=== PATIENT | female | born 1950 | race Caucasian/White ===

== ENCOUNTER 2018-03-04 14:49 | Emergency (ER) | payer MEDICARE ==
[~2018-03-04] VITALS: Ht 167.6 cm; Wt 94.8 kg
[2018-03-04] MEDS ORDERED: METHYLPREDNISOLONE SOD SUCC 125 MG/2ML VIAL IM ONE (15:15)
== END 2018-03-04 17:47 | disposition home or self-care (01) ==
LOC: ER 14:49
DX: L23.5 Allergic contact dermatitis due to other chemical products (principal)
CPT/HCPCS: 99284; J2930

== ENCOUNTER 2018-04-09 16:15 | Inpatient (IN) | payer MEDICARE ==
[2018-04-08] MEDS: KCL 40MEQ/0.9% SOD CHL 1,000 ML IV SCH (08:45)
[~2018-04-09] VITALS: Ht 167.6 cm; Wt 106.3 kg
[2018-04-09] MEDS ORDERED: SODIUM CHLORIDE 0.9% 1000ML 1,000 ML IV STA (16:33)
[2018-04-09] MEDS ORDERED: ONDANSETRON HCL INJ 2 MG/ML VIAL IV STA ×3 (16:33→23:41)
[2018-04-09 17:41] LABS: CLARITY,URINE SL CLOUDY (CLEAR); COLOR,URINE YELLOW (YELLOW); KETONES,URINE NEGATIVE (NEGATIVE); LEUKOCYTE ESTERASE ,URINE 2+ (NEGATIVE); NITRITE,URINE POSITIVE (NEGATIVE); PROTEIN,URINE DIPSTICK 2+ (NEGATIVE); URINE UROBILINOGEN 0.2 mg/dL (0.2 - 1)
[2018-04-09 17:42] LABS: BILIRUBIN,URINE NEGATIVE (NEGATIVE)
[2018-04-09 17:51] LABS: BACTERIA,URINE MANY /HPF; RBC,URINE >50 /HPF (0-5)
[2018-04-09] MEDS ORDERED: ACETAMINOPHEN 1000 MG/100 ML IV STA (18:53)
[2018-04-09 19:28] LABS: BASOPHILS # (AUTO) 0.1 (0.0-0.1); BASOPHILS % 0.3 % (0.0-1.0); HEMATOCRIT 40.5 % (34.2-44.1); HEMOGLOBIN 13.7 g/dL (12.0-16.0); LYMPHOCYTES # (AUTO) 1.8 (1.0-3.2); MEAN CORPUSCULAR HEMOGLOBIN 30.6 pg (28-32); MEAN CORPUSCULAR HGB CONC 33.8 g/dL (31-35); MEAN CORPUSCULAR VOLUME 90.6 fL (81-99); MONOCYTES # (AUTO) 1.8 (0.2-0.8); MONOCYTES % 7.4 % (4.4-11.3); NEUTROPHILS # (AUTO) 21.1 (2.1-6.9); NEUTROPHILS % 84.1 % (38.7-80.0); PLATELET COUNT 221 x10e3/uL (140-360); RED BLOOD COUNT 4.47 x10e6/uL (3.6-5.1); RED CELL DISTRIBUTION WIDTH 13.6 % (11.7-14.4)
[2018-04-09] MEDS ORDERED: PIPER-TAZ 3.375 GM 50 ML IV STA (19:41)
[2018-04-09 19:46] LABS: ALBUMIN 3.6 g/dL (3.5-5.0); ALBUMIN/GLOBULIN RATIO 0.8 (0.8-2.0); ANION GAP 16.4 mmol/L (8-16); CALCIUM 10.3 mg/dL (8.4-10.2); CREATININE, SERUM 1.26 mg/dL (0.57-1.11); POTASSIUM 3.4 mmol/L (3.5-5.1)
[2018-04-09] MEDS ORDERED: DIATRIZOATE MEGL/DIATRIZOA SOD 30 ML BTL PO ONE (19:50)
[2018-04-09 19:55] LABS: INR 1.24; PROTHROMBIN TIME 14.7 seconds (11.9-14.5)
[2018-04-09 19:56] LABS: PARTIAL THROMBOPLASTIN TIME 35.9 seconds (23.8-35.5)
[2018-04-09 20:04] LABS: MAGNESIUM 1.5 MG/DL (1.3-2.1)
[2018-04-09 20:10] LABS: CREATINE KINASE MB 2.9 ng/mL (0-5.0)
[2018-04-09] MEDS ORDERED: SODIUM CHLORIDE 0.9% 1000ML 1,000 ML ONE (20:25)
[2018-04-09] MEDS ORDERED: SODIUM CHLORIDE 0.9% 1000ML 1,000 ML IV ONE ×2 (20:30→23:30)
[2018-04-09] MEDS ORDERED: ALBUTEROL0.63 MG/3 INH (21:05)
[2018-04-09] MEDS ORDERED: AMLODIPINE BESY10 MG PO (21:06)
[2018-04-09] MEDS ORDERED: ATORVASTATIN CA20 MG PO (21:06)
[2018-04-09] MEDS ORDERED: ASPIR 8181 MG PO (21:06)
[2018-04-09] MEDS ORDERED: CYCLOBENZAPRINE10 MG PO (21:07)
[2018-04-09] MEDS ORDERED: ZYRTEC10 M3 PO (21:07)
[2018-04-09] MEDS ORDERED: VITAMIN D250000 UNIT PO (21:08)
[2018-04-09] MEDS ORDERED: FLUTICASONE PRO16 GM (21:09)
[2018-04-09] MEDS ORDERED: LASIX20 MG PO (21:10)
[2018-04-09] MEDS ORDERED: MELOXICAM7.5 MG PO (21:11)
[2018-04-09] MEDS ORDERED: SYNTHROID50 MCG PO (21:11)
[2018-04-09] MEDS ORDERED: COZAAR25 MG PO (21:11)
[2018-04-09] MEDS ORDERED: MONTELUKAST SOD10 MG PO (21:12)
[2018-04-09] MEDS ORDERED: SERTRALINE HCL50 MG PO (21:12)
[2018-04-09] MEDS ORDERED: METOPROLOL SUCC50 MG PO (21:12)
[2018-04-09] MEDS ORDERED: ULTRAM50 MG PO (21:13)
[2018-04-09] MEDS ORDERED: TRAZODONE HCL50 MG PO (21:14)
[2018-04-09 21:50] LABS: LYMPHOCYTES % (MANUAL) 10 % (19-48); METAMYELOCYTES % (MANUAL) 1 % (0-0); MONOCYTES % (MANUAL) 8 % (3.4-9.0); NEUTROPHILS % (MANUAL) 79 % (40-74); PLATELET ESTIMATE ADEQUATE; PLATELET MORPHOLOGY COMMENT NORMAL; RBC MORPHOLOGY COMMENT NORMAL
[2018-04-09] MEDS ORDERED: SODIUM CHLORIDE 0.9% 50ML 50 ML ONE (22:07)
[2018-04-09] MEDS ORDERED: IOPAMIDOL 370 MG/ML 200 ML INFUS..BTL INJ ONE (22:07)
--- NOTE | 2018-04-09 23:25 | Diagnostic Imaging Report ---
ADDENDUM #1 This patient was discussed with the ER physician, Dr. Sarabia. The patient had large volume diarrhea just prior to CT scan with oral contrast all around the vagina, which would account for presence of oral contrast within the vagina, rather than fistula. Signed by: Dr. Indu Szymanski M.D. on 04/09/2018 11:42 PM ORIGINAL REPORT EXAM: CT ABDOMEN AND PELVIS with IV CONTRAST DATE: 04/09/2018 7:38 PM Time stamp on Exam: 2300 hours INDICATION: Fever, diarrhea, vomiting COMPARISON: None TECHNIQUE: The abdomen and pelvis were scanned using a multidetector helical scanner. Coronal and sagittal reformations were obtained. Dose modulation, iterative reconstruction, and/or weight based adjustment of the mA/kV was utilized to reduce the radiation dose to as low as reasonably achievable. Routine protocol performed. IV Contrast: 100 cc Isovue-370 Oral Contrast: Gastrografin FINDINGS: LOWER THORAX: No consolidations LIVER: No masses BILIARY: The gallbladder is unremarkable. No ductal dilation. SPLEEN: No masses PANCREAS: No masses ADRENALS: No nodules KIDNEYS: Heterogeneous perfusion of the bilateral kidneys and bilateral perinephric fat stranding. No hydronephrosis. Mild uroepithelial enhancement. GI TRACT: Possible rectal wall thickening. Possible thickening versus nondistended state of the ascending, transverse and descending colon. Sigmoid colon diverticulosis without evidence of active inflammation. No small bowel dilation. VESSELS: Unremarkable PERITONEUM/RETROPERITONEUM: No free air or fluid LYMPH NODES: No lymphadenopathy REPRODUCTIVE ORGANS: The uterus and ovaries are unremarkable. There is oral contrast in the vagina. BLADDER: Unremarkable SOFT TISSUES: Unremarkable BONES: Heterogeneous appearance to the spine is most likely secondary to degenerative changes and bone demineralization. IMPRESSION: 1. Oral contrast in the vagina suspicious for a rectovaginal fistula. Please correlate with clinical exam. 2. Appearance of the kidneys is nonspecific, but can be seen in pyelonephritis. 3. Colonic wall thickening versus underdistention. Signed by: Dr. Indu Szymanski M.D. on 04/09/2018 11:21 PM
[2018-04-09] MEDS ORDERED: MORPHINE SULFATE 2 MG/ML SYR IV STA (23:41)
[2018-04-09] MEDS ORDERED: METRONIDAZOLE 500MG/NS 100ML 100 ML IV SCH (23:45)
[2018-04-09] MEDS ORDERED: PANTOPRAZOLE 40 MG 10ML VIAL IV STA (23:55)
[2018-04-09] MEDS ORDERED: SODIUM CHLORIDE 0.9% 1000ML 1,000 ML IV SCH (23:55)
[2018-04-10] VITALS (76 sets, daily range): BP systolic 70–122; BP diastolic 34–94
[2018-04-10] MEDS ORDERED: PROMETHAZINE 12.5MG/ NACL 0.9% 12.5 MG/50 ML BAG IV PRN
[2018-04-10] MEDS ORDERED: MORPHINE SULFATE 2 MG/ML SYR IV PRN
[2018-04-10] MEDS ORDERED: ONDANSETRON HCL INJ 2 MG/ML VIAL IV PRN
[2018-04-10] MEDS ORDERED: IBUPROFEN 400 MG TAB PO ONE
[2018-04-10] MEDS ORDERED: ACETAMINOPHEN 1000 MG/100 ML IV PRN (00:15)
[2018-04-10] MEDS ORDERED: DEXTROSE 50% SYRINGE 50 ML IV PRN (00:15)
[2018-04-10] MEDS: METRONIDAZOLE 500MG/NS 100ML 100 ML IV SCH ×5 (00:40→18:00)
[2018-04-10] MEDS: PIPER-TAZ 3.375 GM 50 ML IV SCH ×5 (01:44→23:35)
[2018-04-10] MEDS ORDERED: IBUPROFEN 200 MG TAB PO PRN (02:00)
[2018-04-10 04:45] LABS: BASOPHILS % 0.2 % (0.0-1.0); HEMOGLOBIN 11.6 g/dL (12.0-16.0); LYMPHOCYTES # (AUTO) 0.6 (1.0-3.2); LYMPHOCYTES % 3.2 % (18.0-39.1); MEAN CORPUSCULAR HEMOGLOBIN 30.5 pg (28-32); MEAN CORPUSCULAR HGB CONC 33.1 g/dL (31-35); MEAN CORPUSCULAR VOLUME 92.1 fL (81-99); MONOCYTES # (AUTO) 1.2 (0.2-0.8); MONOCYTES % 6.2 % (4.4-11.3); NEUTROPHILS # (AUTO) 16.5 (2.1-6.9); NEUTROPHILS % 86.4 % (38.7-80.0); PLATELET COUNT 150 x10e3/uL (140-360)
[2018-04-10 05:10] LABS: ALBUMIN 2.6 g/dL (3.5-5.0); ALBUMIN/GLOBULIN RATIO 0.7 (0.8-2.0); ANION GAP 14.5 mmol/L (8-16); CALCIUM 8.5 mg/dL (8.4-10.2); CREATININE, SERUM 1.32 mg/dL (0.57-1.11)
[2018-04-10 05:14] LABS: POTASSIUM 2.5 mmol/L (3.5-5.1)
[2018-04-10 05:22] LABS: CREATINE KINASE MB 2.3 ng/mL (0-5.0)
[2018-04-10] MEDS ORDERED: POTASSIUM CHLORIDE 20 MEQ TAB CR PO STA (05:29)
[2018-04-10 06:44] LABS: BAND NEUTROPHILS % (MANUAL) 11 %; LYMPHOCYTES % (MANUAL) 5 % (19-48); MONOCYTES % (MANUAL) 3 % (3.4-9.0); NEUTROPHILS % (MANUAL) 81 % (40-74)
[2018-04-10 07:01] LABS: HOWELL-JOLLY BODIES FEW; RBC MORPHOLOGY COMMENT NORMAL
[2018-04-10 07:02] LABS: ANISOCYTOSIS SLIGHT; PLATELET ESTIMATE SLIGHTLY DECREASED; PLATELET MORPHOLOGY COMMENT FEW LARGE
[2018-04-10] MEDS: INSULIN REGULAR, HUMAN 100 UNIT/1 ML 3ML VIAL SQ SCH ×4 (07:30→21:00)
[2018-04-10] MEDS ORDERED: SODIUM CHLORIDE 0.9% 500ML 500 ML ONE (09:29)
[2018-04-10] MEDS ORDERED: SODIUM CHLORIDE 0.9% 1000ML 500 ML IV ONE (09:45)
[2018-04-10] MEDS: PANTOPRAZOLE 40 MG 10ML VIAL IV SCH (10:23)
--- NOTE | 2018-04-10 10:53 | History and Physical ---
CHIEF COMPLAINT: Septic shock. HISTORY: Patient is a 67-year-old female, came in hypotensive, dehydrated, and fever. Patient has also had profound diarrhea for the past few days. She is having some abdominal pain. She was in renal failure acutely. The patient with fever, nausea, vomiting, low potassium level. The patient is also dehydrated. The patient is admitted to ICU for a septic shock. PAST MEDICAL HISTORY: Previous CVA with slight right-sided weakness, left carotid endarterectomy, hypertension, diabetes type 2, hypothyroidism, history of hepatitis C, dyslipidemia, obstructive sleep apnea, and diabetic neuropathy. PAST SURGICAL HISTORY: Left carotid endarterectomy. SOCIAL HISTORY: Patient quit smoking many years ago. She drinks alcohol occasionally. ALLERGIES: NO KNOWN ALLERGIES. HOME MEDICATIONS: Not yet available for review. REVIEW OF SYSTEMS: Generalized weakness, diarrhea, and abdominal discomfort. PHYSICAL EXAMINATION VITAL SIGNS: Temperature 101, blood pressure 77/50, pulse rate is 86, and respirations 22. GENERAL: The patient is awake and alert. HEENT: Normocephalic, atraumatic. Sclerae anicteric. NECK: Supple grossly. PULMONARY: Diminished breath sounds. CARDIOVASCULAR: Tachycardia. ABDOMEN: Soft, obese. EXTREMITIES: No cyanosis or edema. NEUROLOGIC: No gross focal deficit at this time. Moving all extremities. LABORATORY: Sodium is 138, potassium 2.5, chloride 108, bicarb 18, BUN 17, creatinine 1.3, and glucose 130. WBC is 19,000, hemoglobin 11.6, hematocrit 35, and platelets are 150. IMAGING: CT abdomen and pelvis had shown colitis. IMPRESSION 1. Septic with shock. 2. Urinary tract infection. 3. Colitis. 4. Acute gastroenteritis. 5. Lactic acidosis. 6. Diarrhea. 7. Dehydration. PLAN: Central line placement. Pressure support. Continue with IV fluid treatment. Flagyl and Zosyn antibiotics. Insulin sliding scale coverage. We will monitor this patient closely in the ICU. We will consult infectious disease for septic with shock. Job#: [id number] CARSON
[2018-04-10 12:38] LABS: ANION GAP 15.6 mmol/L (8-16); CALCIUM 8.7 mg/dL (8.4-10.2); CREATININE, SERUM 1.33 mg/dL (0.57-1.11)
--- NOTE | 2018-04-10 12:43 | Diagnostic Imaging Report ---
EXAMINATION: CHEST XRAY LINE PLACEMENT INDICATION: Status post PICC placement. COMPARISON: Chest radiograph 04/10/18 at 1204 PM. FINDINGS: TUBES and LINES: Slight interval advancement of right sided PICC, which now terminates at the expected location of the upper SVC. LUNGS: Low lung volumes. Mild bibasilar opacities, consistent with atelectasis. There is no evidence of pneumonia or pulmonary edema. PLEURA: No pleural effusion or pneumothorax. HEART AND MEDIASTINUM: The cardiomediastinal silhouette is unremarkable. BONES AND SOFT TISSUES: No acute osseous lesion. Soft tissues are unremarkable. UPPER ABDOMEN: No free air under the diaphragm. IMPRESSION: Right PICC has been slightly advanced and terminates at the upper SVC. No evidence of kinking or pneumothorax. Low lung volumes with patchy bibasilar atelectasis. Signed by: Dr. Destinee Monsalve MD on 04/10/2018 12:40 PM
[2018-04-10 12:44] LABS: CREATINE KINASE MB 2.1 ng/mL (0-5.0)
[2018-04-10 12:50] LABS: POTASSIUM 2.6 mmol/L (3.5-5.1)
[2018-04-10] MEDS: KCL 40MEQ/0.9% SOD CHL 1,000 ML IV SCH ×2 (13:30→20:17)
[2018-04-10] MEDS ORDERED: POTASSIUM CHLORIDE 20MEQ/100ML 200 ML IV ONE (13:45)
[2018-04-10] MEDS ORDERED: MAGNESIUM SULFATE 2GM/50ML 100 ML IV ONE (13:45)
--- NOTE | 2018-04-10 15:08 | Consultation ---
DATE OF CONSULTATION: REASON FOR CONSULTATION: Fever. HISTORY OF PRESENT ILLNESS: This patient has history of CVA, history of obesity, history of hypertension, left carotid endarterectomy, diabetes mellitus type 2, hypothyroidism, hepatitis C, and hyperlipidemia. The patient comes in with fever and chills. She has diarrhea. She has nausea and vomiting. The patient comes into the emergency room. She is currently in ICU with sepsis and septic shock. Her blood cultures are already showing gram-negative rods. LABORATORY DATA: White count was 25.02 on admission, hemoglobin 13, hematocrit 40, platelet of 221. Sodium 139, potassium 2.6, creatinine 1.33. The patient already had a CT of the abdomen and pelvis. There was oral contrast in the vaginal area suspicious for rectovaginal fistula. The colon seems to be thickened. Patient is already on metronidazole and Zosyn. PHYSICAL EXAMINATION GENERAL: She is currently alert and oriented, does not seem to be in acute distress. VITAL SIGNS: Stable. Currently afebrile. HEENT: She does not appear icteric. NECK: Supple. CHEST: Clear bilateral. HEART: S1, S2. No S3, S4, or murmur. ABDOMEN: Soft, obese. No tenderness. No hepatosplenomegaly. EXTREMITIES: No edema. SKIN: No rash. IMPRESSION AND PLAN 1. Sepsis on admission, source is probably colon. Agree with Zosyn. Can discontinue metronidazole. Recheck CBC. Recheck chem panel. IV fluid. Concern about fistula, may need GI evaluation. 2. Diabetes mellitus and hyperlipidemia. We will follow with you. Job#: [id number]
[2018-04-10] MEDS ORDERED: POTASSIUM PHOSPHATE 20 MM in SODIUM CHLORIDE 0.9% 250ML 250 ML IV ONE (19:30)
[2018-04-10 21:42] LABS: OCCULT BLOOD STOOL POSITIVE (NEGATIVE)
[2018-04-11] VITALS (65 sets, daily range): BP systolic 90–140; BP diastolic 64–93
[2018-04-11 04:48] LABS: BASOPHILS # (AUTO) 0.1 (0.0-0.1); BASOPHILS % 0.4 % (0.0-1.0); EOSINOPHILS # (AUTO) 0.1 (0.0-0.4); EOSINOPHILS % 0.3 % (0.0-6.0); HEMATOCRIT 34.4 % (34.2-44.1); HEMOGLOBIN 11.2 g/dL (12.0-16.0); LYMPHOCYTES # (AUTO) 1.6 (1.0-3.2); LYMPHOCYTES % 6.3 % (18.0-39.1); MEAN CORPUSCULAR HEMOGLOBIN 30.4 pg (28-32); MEAN CORPUSCULAR HGB CONC 32.6 g/dL (31-35); MEAN CORPUSCULAR VOLUME 93.2 fL (81-99); MONOCYTES % 7.7 % (4.4-11.3); NEUTROPHILS # (AUTO) 20.9 (2.1-6.9); NEUTROPHILS % 80.6 % (38.7-80.0); PLATELET COUNT 147 x10e3/uL (140-360); RED BLOOD COUNT 3.69 x10e6/uL (3.6-5.1); RED CELL DISTRIBUTION WIDTH 14.6 % (11.7-14.4)
[2018-04-11] MEDS: KCL 40MEQ/0.9% SOD CHL 1,000 ML IV SCH ×2 (04:55→16:09)
[2018-04-11 05:15] LABS: ANION GAP 13.4 mmol/L (8-16); CALCIUM 8.6 mg/dL (8.4-10.2); CREATININE, SERUM 1.16 mg/dL (0.57-1.11); MAGNESIUM 2.4 MG/DL (1.3-2.1); PHOSPHORUS 2.5 MG/DL (2.3-4.7); POTASSIUM 4.4 mmol/L (3.5-5.1)
[2018-04-11] MEDS: PIPER-TAZ 3.375 GM 50 ML IV SCH ×3 (05:39→18:42)
[2018-04-11 06:48] LABS: BAND NEUTROPHILS % (MANUAL) 5 %; LYMPHOCYTES % (MANUAL) 7 % (19-48); METAMYELOCYTES % (MANUAL) 3 % (0-0); MONOCYTES % (MANUAL) 5 % (3.4-9.0); MYELOCYTES % (MANUAL) 1 % (0-0); NEUTROPHILS % (MANUAL) 79 % (40-74)
[2018-04-11 06:49] LABS: ANISOCYTOSIS SLIGHT; PLATELET ESTIMATE SLIGHTLY DECREASED; PLATELET MORPHOLOGY COMMENT NORMAL; RBC MORPHOLOGY COMMENT NORMAL
[2018-04-11] MEDS: INSULIN REGULAR, HUMAN 100 UNIT/1 ML 3ML VIAL SQ SCH (07:30)
--- NOTE | 2018-04-11 07:31 | Diagnostic Imaging Report ---
Examination: Single AP view of the chest. COMPARISON: 04/10/2018 INDICATION: Fluid DISCUSSION: Right upper extremity PICC is stable in position. The lungs remain well-inflated with linear and patchy opacities in the lung bases left greater than right, compatible with atelectasis. No consolidation, pleural effusion, or pneumothorax. Stable cardiomediastinal contour without pulmonary edema. No acute osseous abnormality. IMPRESSION: Stable appearance of right upper extremity PICC. Persistent bibasilar atelectasis, left worse than right. No new airspace consolidation. No pulmonary edema. Signed by: Dr. Abelardo Delatorre M.D. on 04/11/2018 7:27 AM
[2018-04-11] MEDS: PANTOPRAZOLE 40 MG 10ML VIAL IV SCH (09:30)
[2018-04-11 14:49] LABS: C DIFFICILE TOXIN A&B AMP PROB NEGATIVE (NEGATIVE)
--- NOTE | 2018-04-11 16:38 | Diagnostic Imaging Report ---
CT CHEST WITHOUT CONTRAST HISTORY: Shortness of breath COMPARISON: Chest radiograph April 11, 2018 TECHNIQUE: CT scan of the chest WITHOUT intravenous contrast, using standard protocol. The chest was scanned utilizing a multidetector helical scanner from the apex to the level of the adrenal glands. Coronal and sagittal reformats are provided. IV CONTRAST: None, which limits evaluation of the vascular structures, mediastinum and soft tissues. RADIATION DOSE: Total DLP: 550.58 mGy*cm Dose modulation, iterative reconstruction, and/or weight based adjustment of the mA/kV was utilized to reduce the radiation dose to as low as reasonably achievable. COMPLICATIONS: None FINDINGS: Lines/tubes: A right upper extremity port with the tip of the catheter within the distal superior vena cava. Lungs and Airways: Moderate right and small left atelectasis. Underlying pathology could be obscured. No consolidative pneumonia or pulmonary alveolar edema. Pleura: Small right and trace left effusions. Heart and mediastinum: The thyroid gland is normal. The heart and pericardium are within normal limits. Abdomen: Limited nonenhanced views of the upper abdomen. Lymph nodes: No pathologically enlarged lymph node identified. Vessels: Scattered atherosclerotic vascular calcifications, including the coronary arteries. A punctate air focus within the right jugular vein near the confluence with the right brachiocephalic vein, this may be secondary to recent intervention or injection. Bones: No acute osseous lesion. Mild to severe multilevel degenerative disc changes of the thoracic spine. Soft tissues: Otherwise, unremarkable. IMPRESSION: 1. Small right and trace left pleural effusions with adjacent moderate right and small left atelectasis. 2. Coronary atherosclerosis. 3. Otherwise, no pneumonia or pulmonary alveolar edema. Signed by: Dr. Ciaran Epperson D.O., M.M.M. on 04/11/2018 4:34 PM
[2018-04-12] VITALS (44 sets, daily range): BP systolic 121–154; BP diastolic 76–96
[2018-04-12] MEDS: PIPER-TAZ 3.375 GM 50 ML IV SCH ×2 (00:12→06:08)
[2018-04-12 04:51] LABS: BASOPHILS # (AUTO) 0.1 (0.0-0.1); BASOPHILS % 0.3 % (0.0-1.0); EOSINOPHILS # (AUTO) 0.2 (0.0-0.4); HEMOGLOBIN 10.6 g/dL (12.0-16.0); LYMPHOCYTES # (AUTO) 1.6 (1.0-3.2); LYMPHOCYTES % 8.8 % (18.0-39.1); MEAN CORPUSCULAR HEMOGLOBIN 30.6 pg (28-32); MEAN CORPUSCULAR HGB CONC 33.1 g/dL (31-35); MEAN CORPUSCULAR VOLUME 92.5 fL (81-99); MONOCYTES # (AUTO) 1.3 (0.2-0.8); MONOCYTES % 7.2 % (4.4-11.3); NEUTROPHILS # (AUTO) 14.9 (2.1-6.9); NEUTROPHILS % 82.3 % (38.7-80.0); PLATELET COUNT 145 x10e3/uL (140-360); RED BLOOD COUNT 3.46 x10e6/uL (3.6-5.1); RED CELL DISTRIBUTION WIDTH 15.2 % (11.7-14.4)
[2018-04-12 05:17] LABS: ANION GAP 13.5 mmol/L (8-16); CALCIUM 8.8 mg/dL (8.4-10.2); MAGNESIUM 1.8 MG/DL (1.3-2.1); PHOSPHORUS 2.3 MG/DL (2.3-4.7); POTASSIUM 4.5 mmol/L (3.5-5.1)
[2018-04-12] MEDS: PANTOPRAZOLE 40 MG 10ML VIAL IV SCH (09:50)
[2018-04-12] MEDS: CEFTRIAXONE SOD 1 GM VIAL IV SCH ×2 (12:42→21:18)
[2018-04-13] VITALS (9 sets, daily range): BP systolic 115–145; BP diastolic 78–86
[2018-04-13] MEDS: NYSTATIN/TRIAMCINOLONE 15 GM CR TOP SCH ×2 (09:23→16:12)
[2018-04-13] MEDS: PANTOPRAZOLE 40 MG 10ML VIAL IV SCH (09:23)
[2018-04-13] MEDS: CEFTRIAXONE SOD 1 GM VIAL IV SCH ×2 (09:23→20:31)
[2018-04-13] MEDS ORDERED: BENZONATATE 100 MG CAP PO PRN (12:45)
[2018-04-13] MEDS ORDERED: TRAZODONE HCL 50 MG TAB PO PRN (12:45)
[2018-04-13] MEDS ORDERED: CYCLOBENZAPRINE HCL 10 MG TAB PO PRN (12:45)
[2018-04-13] MEDS ORDERED: HYDROCODONE/APAP 7.5MG-325MG 1 EA TAB PO PRN (12:45)
[2018-04-13] MEDS ORDERED: ONDANSETRON HCL 4 MG ORAL DISINTEGRATING TAB PO PRN (12:45)
[2018-04-13] MEDS ORDERED: TRAMADOL HCL 50 MG TAB PO PRN (12:45)
[2018-04-13] MEDS ORDERED: ALBUTEROL/IPRATROPIUM 3 ML NEB NEB PRN (12:45)
[2018-04-13] MEDS ORDERED: IBUPROFEN 400 MG TAB PO PRN (13:00)
[2018-04-13] MEDS: ALBUTEROL/IPRATROPIUM 3 ML NEB NEB SCH ×2 (15:03→19:42)
[2018-04-13] MEDS ORDERED: MONTELUKAST SODIUM 10 MG TAB PO SCH (21:00)
[2018-04-13] MEDS ORDERED: ATORVASTATIN 40 MG TAB PO SCH (21:00)
[2018-04-14 00:18] VITALS: BP 130/76
[2018-04-14] MEDS: ALBUTEROL/IPRATROPIUM 3 ML NEB NEB SCH ×3 (01:25→14:13)
[2018-04-14 04:00] VITALS: BP 132/73
[2018-04-14 04:47] LABS: BASOPHILS % 0.4 % (0.0-1.0); EOSINOPHILS # (AUTO) 0.3 (0.0-0.4); EOSINOPHILS % 2.6 % (0.0-6.0); HEMATOCRIT 31.2 % (34.2-44.1); HEMOGLOBIN 10.3 g/dL (12.0-16.0); LYMPHOCYTES # (AUTO) 2.5 (1.0-3.2); LYMPHOCYTES % 25.3 % (18.0-39.1); MEAN CORPUSCULAR HEMOGLOBIN 29.9 pg (28-32); MEAN CORPUSCULAR VOLUME 90.7 fL (81-99); MONOCYTES # (AUTO) 1.4 (0.2-0.8); MONOCYTES % 14.1 % (4.4-11.3); NEUTROPHILS # (AUTO) 5.6 (2.1-6.9); NEUTROPHILS % 55.6 % (38.7-80.0); PLATELET COUNT 167 x10e3/uL (140-360); RED BLOOD COUNT 3.44 x10e6/uL (3.6-5.1); RED CELL DISTRIBUTION WIDTH 14.7 % (11.7-14.4)
[2018-04-14 05:08] LABS: ANION GAP 13.8 mmol/L (8-16); BLOOD UREA NITROGEN 12 mg/dL (7-26); BUN/CREATININE RATIO 13 (6-25); CALCIUM 8.8 mg/dL (8.4-10.2); CARBON DIOXIDE 21 mmol/L (22-29); CHLORIDE 107 mmol/L (98-107); CREATININE, SERUM 0.89 mg/dL (0.57-1.11); EST GLOMERULAR FILTRATION RATE > 60 ML/MIN (60-); GLUCOSE 106 mg/dL (74-118); POTASSIUM 3.8 mmol/L (3.5-5.1); SODIUM 138 mmol/L (136-145)
[2018-04-14] MEDS ORDERED: LEVOTHYROXINE SODIUM 25 MCG TABLET PO SCH (06:30)
[2018-04-14 06:45] LABS: EOSINOPHILS % (MANUAL) 1 % (0-7); LYMPHOCYTES % (MANUAL) 15 % (19-48); METAMYELOCYTES % (MANUAL) 1 % (0-0); MONOCYTES % (MANUAL) 8 % (3.4-9.0); NEUTROPHILS % (MANUAL) 71 % (40-74)
[2018-04-14 06:46] LABS: PLATELET ESTIMATE ADEQUATE; PLATELET MORPHOLOGY COMMENT FEW LARGE; RBC MORPHOLOGY COMMENT NORMAL
[2018-04-14 07:48] VITALS: BP 120/74
[2018-04-14 08:04] VITALS: BP 120/74
[2018-04-14] MEDS: CEFTRIAXONE SOD 1 GM VIAL IV SCH (08:23)
[2018-04-14] MEDS: NYSTATIN/TRIAMCINOLONE 15 GM CR TOP SCH (08:24)
[2018-04-14] MEDS ORDERED: LORATADINE 10 MG TAB PO SCH (09:00)
[2018-04-14] MEDS ORDERED: SERTRALINE HCL 50 MG TAB PO SCH (09:00)
[2018-04-14] MEDS ORDERED: ASPIRIN 81 MG CHEW TAB PO SCH (09:00)
[2018-04-14 11:52] VITALS: BP 125/83
[2018-04-14] MEDS ORDERED: K DUR10 MEQ PO (15:24)
[2018-04-14] MEDS ORDERED: KEFLEX500 MG PO (15:24)
[2018-04-14 15:40] VITALS: BP 128/78
--- NOTE | 2018-04-15 04:47 | Discharge Summary ---
PRIMARY CARE PHYSICIAN: . OIL DRILLING ENGINEER: Dr. Modesta Navarro. FINAL DIAGNOSES 1. Sepsis with shock. 2. Status post dehydration secondary to acute gastroenteritis associated with diarrhea. 3. Acute kidney failure. 4. Leukocytosis, resolved. SUMMARY: A 67-year-old female who came in very sick, hypotensive with shock. Patient has significant leukocytosis on admission. Patient had a WBC of 25,200, but now is it 10,000. Her infection is now resolving. Patient on microbiology showed gram-stain blood cultures E. coli. The patient does have E. coli urinary tract infection. Basically, the patient had acute gastroenteritis and subsequently ended up with urinary bladder infection, became septic. Blood pressure was low on admission. Systolic blood pressure in the 80s-90s systolic. The patient required pressor support. She was in the ICU. WBC was 25,000, down to 19,000, up to 25,000, down to 18,000, and now is 10,000. Hemoglobin and hematocrit is stable at 10.3 and 31.2. Patient is otherwise stable. Urinalysis shows 2+ leukocyte esterase, many bacteria, 2+ protein, and 4+ blood. Patient's C. diff toxin was negative. The patient was stable. When she came in, she was having significant diarrhea. She did have a CAT scan of the abdomen and pelvis done with contrast, both oral and IV contrast. Apparently, she was having significant diarrhea, and there was a possibility of contrast in the vaginal area. The question was possible rectovaginal fistula, but very unlikely. It seems the patient has not had any problem since then. The patient has been eating and had a good bowel movement. She is stable. Overall, she is comfortable. She only sleeps with CPAP at night due to sleep apnea. Otherwise, the patient is not getting any nebulizer treatment. She quit smoking many years ago, did not have any exacerbation of breathing problem. The patient is stable now. She is stable. She will go home with potassium 10 mEq daily if she takes with Lasix. Keflex 500 mg t.i.d. for 5 days. Patient will continue with her home medication. We will hold off on the losartan for now. Blood pressure is stabilized without the medication. At baseline, she takes Lasix and Norvasc. At this time, she is stable. She will go home. She will follow with next week. I wrote her a request for repeat CT of the abdomen and pelvis with and without contrast to rule out rectovaginal fistula. The patient is otherwise stable and discharged home. Follow up as an outpatient. She is very comfortable and back to her usual baseline. Job#: [id number] BRADY
== END 2018-04-14 16:44 | disposition home or self-care (01) | DRG 871 ==
LOC: ER 16:15 → ERHOLD 04-10 02:02 → ICU 04-10 02:30 → MED/SURG2 04-12 14:10
PROVIDERS: ADMIT Internal Medicine; ATTEND Internal Medicine
PROC: 02HV33Z Insertion of Infusion Device into Superior Vena Cava, Percutaneous Approach (ICD-10-PCS; principal; 2018-04-10)
PROC: 02HV33Z Insertion of Infusion Device into Superior Vena Cava, Percutaneous Approach (ICD-10-PCS; 2018-04-10)
DX: A41.51 Sepsis due to Escherichia coli [E. coli] (principal); R65.21 Severe sepsis with septic shock; J18.9 Pneumonia, unspecified organism; A09 Infectious gastroenteritis and colitis, unspecified; N17.9 Acute kidney failure, unspecified; N39.0 Urinary tract infection, site not specified; E87.2 Acidosis; I69.351 Hemiplegia and hemiparesis following cerebral infarction affecting right dominant side; N18.9 Chronic kidney disease, unspecified; R11.2 Nausea with vomiting, unspecified; E86.0 Dehydration; E03.9 Hypothyroidism, unspecified; E78.5 Hyperlipidemia, unspecified; E11.42 Type 2 diabetes mellitus with diabetic polyneuropathy; E66.9 Obesity, unspecified; Z68.33 Body mass index [BMI] 33.0-33.9, adult; R06.89 Other abnormalities of breathing; G47.30 Sleep apnea, unspecified; Z87.891 Personal history of nicotine dependence; Z79.4 Long term (current) use of insulin; E11.22 Type 2 diabetes mellitus with diabetic chronic kidney disease
CPT/HCPCS: 36415; 36569; 51700; 71045; 71250; 74177; 80048; 80053; 81001; 82150; 82270; 82550; 82553; 82948; 83605; 83690; 83735; 84100; 84484; 85025; 85610; 85730; 87040; 87045; 87071; 87177; 87186; 87205; 87328; 87493; 93005; 94640; 94660; 99285; J0696; J2270; J2405; J2543; J2550; J3480; J7030; J7040; J7050; Q9967